=== PATIENT | female | born 1935 | race Caucasian/White ===

== ENCOUNTER → 2016-09-22 | Day surgery (SDC) | payer MEDICARE, BC ==
[~2016-09-22] MED LIST: LIDOCAINE HCL 1% MPF SOL ONE; PROPOFOL 500 MG/50 ML EMU IV ONE
[2016-09-22 12:11] VITALS: TEMP 96.9
[2016-09-22 12:39] VITALS: RESP 20
[2016-09-22 12:44] VITALS: BP 163/71; PULSE 60; O2SAT 99
== END | disposition home or self-care (01) | DRG 812 ==
LOC: SURG 10:54
PROVIDERS: ATTEND Surgery
DX: D50.0 Iron deficiency anemia secondary to blood loss (chronic) (principal); K57.30 Diverticulosis of large intestine without perforation or abscess without bleeding
CPT/HCPCS: J2001; J2704